=== PATIENT | male | born 1945 | race Caucasian/White ===

== ENCOUNTER → 2022-01-18 | Outpatient (CLI) | payer OTHER | LOC: CARD 11:00 | PROVIDERS: ATTEND Internal Medicine Cardiovascular Disease | DX: I25.10 Atherosclerotic heart disease of native coronary artery without angina pectoris (principal); I35.0 Nonrheumatic aortic (valve) stenosis; I11.9 Hypertensive heart disease without heart failure | CPT/HCPCS: 93306 ==

== ENCOUNTER → 2022-01-24 | Outpatient (CLI) | payer OTHER ==
[~2022-01-24] VITALS: Ht 175 cm; Wt 77.0 kg
[~2022-01-24] MED LIST: ASCO100024 PO; CALC-822 PO; CATHETER FLUSH 10 ML SYR IVP PRN; CHOL100048 PO; GLUC-219 PO; HYDR12.56 PO; MEMA10TA57 PO; REGADENOSON 0.4 MG/5 ML SYR (LEXISCAN) IV ONE; TUMERIC PO; UBID100C44 PO; VITA1CAP16 PO; [UNRECOGNIZED DRUG - CODE] PO
[2022-01-24 10:14] VITALS: BP 147/72
--- NOTE | 2022-01-24 13:27 | Cardiology Stress Test Report ---
Stress Test Report Date of Procedure/Referring: Date of Procedure: Jan 24, 2022 PCP Gina Bertrand DO Admitting Physician Admitting Physician: Attending Physician: Rula Lilyl MD Indications: CP Baseline Heart Rate: 78 Baseline Blood Pressure: Blood Pressure Systolic: 147 Blood Pressure Diastolic: 72 Baseline Vitals Vital Signs Date Time Temp Pulse Resp B/P (MAP) Pulse Ox O2 Delivery O2 Flow Rate FiO2 01/24/22 10:14 78 147/72 (97) Baseline EKG: Baseline EKG: NSR Summary After explaining the procedure to the patient, he signed a consent and then brought to the stress nuclear laboratory. Patient received 0.4 mg Lexiscan for stress test, ECG, heart rate and blood pressure were monitored continuously. Resting and stress dose of radio tracer were injected, imaging was acquired and reviewed in short axis, horizontal long axis and vertical long axis views. TID: 1.14 SSS: 2 SDS: 2 EF: 70 1. Patient tolerated Lexiscan well 2. No significant ischemia or infarction on SPECT images 3. Normal left ventricular size, ejection fraction 70% Copy Copies To 1: GINA BERTRAND BASHAR J MD Jan 24, 2022 13:27
== END ==
LOC: CARD 08:45
PROVIDERS: ATTEND Internal Medicine Cardiovascular Disease
DX: I25.10 Atherosclerotic heart disease of native coronary artery without angina pectoris (principal); I10 Essential (primary) hypertension
CPT/HCPCS: 78452; 93017; A9502

== ENCOUNTER 2022-01-26 09:00 | Day surgery (SDC) | payer MEDICARE, OTHER ==
[~2022-01-26] VITALS: Ht 175.3 cm; Wt 79.1 kg
[2022-01-26 07:22] VITALS: BP 144/60
[2022-01-26 07:37] LABS: HEMOGLOBIN 13.5 g/dL (13.3-17.7)
[2022-01-26 07:39] LABS: BILIRUBIN,URINE NEGATIVE (NEGATIVE); CLARITY,URINE CLEAR; COLOR,URINE YELLOW; GLUCOSE, URINE (UA) NEGATIVE (NEGATIVE); KETONES,URINE NEGATIVE (NEGATIVE); LEUKOCYTE ESTERASE ,URINE NEGATIVE (NEGATIVE); NITRITE,URINE NEGATIVE (NEGATIVE); PH,URINE 5.5 (5-9); PROTEIN,URINE NEGATIVE (NEGATIVE); WHITE BLOOD COUNT 3.5 10^3/uL (4.3-11.0)
--- NOTE | 2022-01-26 07:39 | Diagnostic Imaging Report ---
EXAM: CHEST 1 VIEW, AP/PA ONLY INDICATION: Severe claudication. COMPARISON: None. FINDINGS: Normal heart size and central pulmonary vascularity. No focal pulmonary opacity. No pleural effusion or pneumothorax. No acute osseous findings. IMPRESSION: No acute cardiopulmonary findings. Dictated by: Dictated on workstation # [id number]
--- NOTE | 2022-01-26 07:46 | Cardiac Procedure Note-CS/ASA ---
Pre-Procedure Note Pre-Op Procedure Note Date of Available H&P: Jan 15, 2022 Date H&P Reviewed: Jan 26, 2022 Time H&P Reviewed: 07:46 History & Physical: H&P Reviewed, Patient Examed, No changes noted Pre-Operative Diagnosis: Claudication Conscious Sedation Pre-Proced Time 07:46 ASA Score 3 For ASA 3 and 4: Consider anesthesia and medical clearance. Also, for patients with a history of failed moderate sedation consider anesthesia. Airway Lungs Heart ASA score ASA 1: a normal healthy patient ASA 2: a patient with a mild systemic disease (mid diabetes, controlled hypertension, obesity ASA 3: a patient with a severe systemic disease that limits activity (angina, COPD, prior Myocardial infarction) ASA 4: a patient with an incapacitating disease that is a constant threat to life (CHF, renal failure) ASA 5: a moribund patient not expected to survive 24 hrs. (ruptured aneurysm) ASA 6: a declared brain- patient whose organs are being harvested. For emergent operations, add the letter E after the classification Mallampati Classification Grade 3 Sedation Plan Analgesia, Amnesia, Plan communicated to team members, Discussed options with patient/fam, Discussed risks with patient/fam The patient is an appropriate candidate to undergo the planned procedure, sedation, and anesthesia. The patient immediately re-assessed prior to indication. LILIANE VOSS MD Jan 26, 2022 07:46
[2022-01-26 07:47] LABS: ALBUMIN 4.3 GM/DL (3.2-4.5); BACTERIA,URINE NEGATIVE /HPF; POTASSIUM 3.9 MMOL/L (3.6-5.0); SQUAMOUS EPITHELIAL CELL,UR RARE /HPF
[2022-01-26 07:48] LABS: CALCIUM 9.2 MG/DL (8.5-10.1)
[2022-01-26 07:49] LABS: TOTAL PROTEIN 7.4 GM/DL (6.4-8.2)
[2022-01-26 07:51] LABS: BILIRUBIN,TOTAL 0.9 MG/DL (0.1-1.0)
[2022-01-26 08:17] LABS: INR 1.1 (0.8-1.4); PROTHROMBIN TIME PATIENT 14.4 SEC (12.2-14.7)
[~2022-01-26 09:00] MED LIST changes: -CATHETER FLUSH 10 ML SYR IVP PRN; +HEParin (CATH LAB) 2,000 ML IV ONE; +LIDOCAINE 1% INJ 20 ML VIAL ONE; +MIDAZOLAM 2 MG/2 ML (VERSED) VIAL ONE; +NS IV 1000 ML 1,000 ML IV SCH; +NS IV 1000 ML 1,000 ML ONE; -REGADENOSON 0.4 MG/5 ML SYR (LEXISCAN) IV ONE; +fentaNYL INJ 100 MCG/2 ML AMP ONE
[2022-01-26] MEDS ORDERED: HEParin 1000 UNIT/ML (10ML VIAL) FOR BOLUS ONE (09:26)
[2022-01-26] MEDS ORDERED: NITRO DRIP 25000 MCG/D5W 0 ML IV ONE (09:26)
[2022-01-26] MEDS ORDERED: MIDAZOLAM 2 MG/2 ML (VERSED) VIAL ONE (09:57)
[2022-01-26] MEDS ORDERED: CLOPIDOGREL 300 MG (PLAVIX) TABLET PO ONE (10:41)
[2022-01-26] MEDS ORDERED: ASPIRIN 325 MG (5 GR) TABLET ONE (10:41)
--- NOTE | 2022-01-26 10:54 | Peripheral Report ---
Peripheral Report Physician (s)/Family Day Care Provider (s) Physician LILIANE VOSS MD Pre-Procedure Diagnosis Pre-Procedure Diagnosis: Claudication Post-Procedure Note Procedure Start Date: Jan 26, 2022 Name of Procedure: Bilateral lower extremities runoff Third order Additional imaging Balloon angioplasty and stenting to the right SFA Findings/Procedure Note PROCEDURE NOTE: 76-year-old gentleman with increasing claudication, has severely abnormal ROSETTA on the right, moderate to severe abnormal ROSETTA on the left. Scheduled for peripheral angiogram After explaining the procedure to the patient, all pros and cons were explained, all questions were answered. The patient signed the consent and then he was placed on the cardiac catheterization laboratory. The patient was placed on the cardiac catheterization laboratory. Groin was prepped SL fashion local anesthesia was used. Sheath placed in the left femoral artery, runoff to the left lower extremity was done through the sheath then a rim catheter was advanced to the common iliac artery and runoff to the right leg was done then Storq catheter was advanced and I placed 6 Portuguese 45 cm sheath advanced to the mid right iliac artery then I advanced the straight catheter to the mid SFA and performed angiogram to the SFA. Patient was given a total of 7000 units of heparin I used command 18 wire and patient had total occlusion at multiple segment, I was able to advance through the lesion with Chas cross catheter, I was unable to advance 5 x 200 balloon, did inflation in the mid SFA then I advanced 2 oh by 40 balloon to the popliteal artery and did multiple inflation in the popliteal and distal SFA through the total occlusion then I was able to advance 6 x 100 balloon and did multiple inflation. Then I used another 6 x 100 balloon 3 Supera stent were deployed distally 5.5 x 150 followed by one 5.5 x 150 and proximally 6 x 100 overlapping postdilated with 5.5 x 150 balloon, angiogram showed excellent results. Sheath was retracted and exchanged back and used short 6 Portuguese sheath then sheath was removed and Angio-Seal was used FINDINGS: Left lower extremity, atherosclerotic plaque in the mid SFA with multiple area of moderate to severe stenosis Right lower extremity, atherosclerotic plaque in the proximal and mid SFA, total occlusion at the mid SFA and the popliteal artery, complex intervention with successful balloon angioplasty and deployment of 3 stents overlapping Supera in the SFA with excellent results. CONCLUSIONS: 1. 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 Severe calcification. Successful balloon angioplasty and deployment of 3 Supera stent. Distally 5.5 x 150 followed by 5.5 x 150 and proximally 6 x 100 overlapping stent postdilated with 5.5 balloon. 2. Left lower extremity has moderate to severe stenosis at the midportion DISCUSSION AND RECOMMENDATIONS: Maximize medical therapy and planning for staged intervention to the left lower extremity Anesthesia Type: Conscious Sedation Estimated blood loss (mL): 30 ml Contrast Amount: 40 ml Total Radiation Dose: 346 mGy Post-Procedure Diagnosis Post-operative diagnosis: Claudication Peripheral arterial disease Hypertension Hyperlipidemia LILIANE VOSS MD Jan 26, 2022 10:54
[2022-01-26] MEDS ORDERED: PATIENT MAY USE OWN MEDS, ALL PO SCH (11:00)
[2022-01-26] MEDS ORDERED: morphine INJ 4 MG/ML 1 ML (VIAL/SYRINGE) ONE (11:55)
[2022-01-26 12:00] VITALS: BP 138/69
[2022-01-26] MEDS ORDERED: fentaNYL INJ 100 MCG/2 ML AMP ONE (14:12)
[2022-01-26] MEDS ORDERED: fentaNYL INJ 100 MCG/2 ML AMP IVP ONE (14:21)
[2022-01-26] MEDS ORDERED: fentaNYL INJ 100 MCG/2 ML AMP IVP NR (14:30)
[2022-01-26 16:25] VITALS: BP 119/66
[2022-01-26 19:56] VITALS: BP 123/68
[2022-01-26] MEDS: ACETAMINOPHEN 325 MG TABLET PO PRN (22:18)
[2022-01-27 06:20] LABS: HEMOGLOBIN 11.9 g/dL (13.3-17.7); MEAN PLATELET VOLUME 11.4 fL (9.0-12.2)
[2022-01-27 06:45] LABS: POTASSIUM 3.8 MMOL/L (3.6-5.0)
[2022-01-27 06:46] LABS: CALCIUM 8.7 MG/DL (8.5-10.1)
[2022-01-27 06:50] LABS: CREATININE SERUM 0.86 MG/DL (0.60-1.30)
[2022-01-27 08:00] VITALS: BP 140/71
[2022-01-27] MEDS: ASPIRIN E.C. 81 MG (ECOTRIN) TAB PO SCH (08:40)
[2022-01-27] MEDS ORDERED: NON-FORMULARY MEDICATION 1 EA EA (Hydrochlorothiazide 12.5 MG) PO SCH (09:00)
[2022-01-27] MEDS ORDERED: fentaNYL INJ 100 MCG/2 ML AMP ONE (09:13)
[2022-01-27] MEDS ORDERED: HEParin 1000 UNIT/ML (10ML VIAL) FOR BOLUS ONE (09:14)
[2022-01-27] MEDS ORDERED: NS IV 1000 ML 1,000 ML ONE (09:14)
[2022-01-27] MEDS ORDERED: MIDAZOLAM 2 MG/2 ML (VERSED) VIAL ONE (09:14)
[2022-01-27] MEDS ORDERED: LIDOCAINE 1% INJ 20 ML VIAL ONE (09:14)
[2022-01-27] MEDS ORDERED: HEParin (CATH LAB) 1,000 ML IV ONE (09:14)
[2022-01-27] MEDS: CLOPIDOGREL 75 MG (PLAVIX) TABLET PO SCH (09:15)
--- NOTE | 2022-01-27 09:22 | Cardiology Progress Note ---
Subjective Date Seen by Provider: Jan 27, 2022 Time Seen by Provider: 09:20 Subjective/Events-last exam Patient was seen at bedside, sitting comfortably, denied any active pain. Have significant bruising on the left groin Review of Systems General: No Chills, No Night Sweats, No Fatigue, No Malaise, No Appetite, No Other HEENT: No Head Aches, No Visual Changes, No Eye Pain, No Ear Pain, No Dysphasia, No Sinus Congestion, No Post Nasal Drip, No Sore Throat, No Other Pulmonary: No Dyspnea, No Cough, No Pleuritic Chest Pain, No Other Cardiovascular: No: Chest Pain, Palpitations, Orthopnea, Paroxysmal Noc. Dyspnea, Edema, Lt Headedness, Other Objective-Cardiology Exam Last Set of Vital Signs Vital Signs 01/27/22 08:00 Temp 37.3 Pulse 79 Resp 16 B/P (MAP) 140/71 (94) Pulse Ox 98 O2 Delivery Room Air I&O Intake and Output 01/27/22 00:00 Intake Total 450 ml Output Total 300 ml Balance 150 ml Intake Oral 450 ml Output Urine Total 300 ml General: Alert, Oriented X3, Cooperative HEENT: Atraumatic, PERRLA Neck: Supple, No JVD, No Thyromegaly Lungs: Clear to Auscultation, Normal Air Movement Heart: Regular Rate, Normal S1, Normal S2, Other (Systolic murmur) Abdomen: Normal Bowel Sounds, Soft, No Tenderness, No Hepatosplenomegaly, No Masses Extremities: No Clubbing, No Cyanosis, No Edema, No Tenderness/Swelling Skin: No Rashes, No Breakdown, No Significant Lesion Neuro: Normal Gait, Normal Speech, Strength at 5/5 X4 Ext, Normal Tone, Sensation Intact Psych/Mental Status: Mental Status NL, Mood NL Results Lab Laboratory Tests 01/27/22 05:27 A/P-Cardiology Admission Diagnosis Claudication Peripheral arterial disease Hypertension Hyperlipidemia Diabetes mellitus Assessment/Plan Severe claudication Extensive peripheral arterial disease Total occlusion of the right SFA, status post complex intervention on January 26, 2022 3 stents to the right SFA with excellent results Patient has severe stenosis of the left SFA, planning for intervention today Patient had continuous oozing of blood post intervention yesterday Reporting that he has a history of bleeding tendencies There is significant bruising, no hematoma was noted Hypertension, continue on current medication monitor blood pressure Hyperlipidemia, monitor lipids Diabetes mellitus, holding metformin LILIANE VOSS MD Jan 27, 2022 09:22
--- NOTE | 2022-01-27 09:23 | Cardiac Procedure Note-CS/ASA ---
Pre-Procedure Note Pre-Op Procedure Note Date of Available H&P: Jan 15, 2022 Date H&P Reviewed: Jan 27, 2022 Time H&P Reviewed: 09:23 History & Physical: H&P Reviewed, Patient Examed, No changes noted Pre-Operative Diagnosis: Claudication Conscious Sedation Pre-Proced Time 09:23 ASA Score 3 For ASA 3 and 4: Consider anesthesia and medical clearance. Also, for patients with a history of failed moderate sedation consider anesthesia. Airway Lungs Heart ASA score ASA 1: a normal healthy patient ASA 2: a patient with a mild systemic disease (mid diabetes, controlled hypertension, obesity ASA 3: a patient with a severe systemic disease that limits activity (angina, COPD, prior Myocardial infarction) ASA 4: a patient with an incapacitating disease that is a constant threat to life (CHF, renal failure) ASA 5: a moribund patient not expected to survive 24 hrs. (ruptured aneurysm) ASA 6: a declared brain- patient whose organs are being harvested. For emergent operations, add the letter E after the classification Mallampati Classification Grade 3 Sedation Plan Analgesia, Amnesia, Plan communicated to team members, Discussed options with patient/fam, Discussed risks with patient/fam The patient is an appropriate candidate to undergo the planned procedure, sedation, and anesthesia. The patient immediately re-assessed prior to indication. LILIANE VOSS MD Jan 27, 2022 09:23
[2022-01-27] MEDS: HydroCHLOROthiazide CAP/TABLET 12.5 MG TAB PO SCH (09:41)
[2022-01-27] MEDS ORDERED: NITRO DRIP 25000 MCG/D5W 250 ML IV ONE (10:10)
--- NOTE | 2022-01-27 10:43 | Peripheral Report ---
Peripheral Report Physician (s)/Cordage Sales Representative (s) Physician LILIANE VOSS MD Pre-Procedure Diagnosis Pre-Procedure Diagnosis: Claudication Post-Procedure Note Procedure Start Date: Jan 27, 2022 Name of Procedure: Bilateral lower extremities runoff Third order Stenting of the left SFA Findings/Procedure Note PROCEDURE NOTE: 76-year-old gentleman with extensive peripheral arterial disease, significant claudication. Underwent percutaneous intervention of the right lower extremity on January 26, 2022 and he was scheduled for intervention on the left lower extremity. After explaining the procedure to the patient, all pros and cons were explained, all questions were answered. The patient signed the consent and then he was placed on the cardiac catheterization laboratory. The patient was placed on the cardiac catheterization laboratory. Groin was prepped SL fashion local anesthesia was used. Sheath placed in the right femoral artery, rim catheter was used and a Storq wire was advanced then sheath was exchanged and I used a long 6 Persian sheath advanced to the proximal left SFA runoff to the left leg was done then I advanced a command 18 wire and did balloon angioplasty with Orrick 6 x 150. Then proceeded with deployment of 2 Supera stents 5.5 x 150 and 5.5 x 100 postdilated with 5.0 balloon, angiogram showed excellent results, I pulled back the sheath to the proximal left common iliac and did runoff to the left leg then the sheath was exchanged to a short 6 Persian sheath and I placed a pigtail catheter in the abdominal aorta and did abdominal aortogram with runoff down to the mid SFA bilaterally. Sheath position was checked with angiogram then closure device deployed FINDINGS: Right lower extremity, has patent stents in the right SFA with excellent flow down to the trifurcation Left lower extremity, patient has severe stenosis in the mid left SFA, successful balloon angioplasty then deployment of 2 stents Supera 5.5 x 150 and 5.5 x 100 with excellent results Abdominal aortogram done with the pigtail just above the bifurcation, showing small aneurysmal dilatation in the distal abdominal aorta, mild atherosclerotic disease in the iliac and common femoral artery, nonobstructive disease. CONCLUSIONS: 1. Small infrarenal abdominal aortic aneurysmal dilatation. Very minimal 2. Mild to moderate calcification in the iliac artery with mild disease nonobstructive disease 3. Severe stenosis in the left SFA with successful deployment of 2 overlapping Supera stent 5.5 x 105.5 x 150 with excellent results 4. Patent stent in the right SFA with excellent flow distally DISCUSSION AND RECOMMENDATIONS: Continue on aspirin and Plavix. Anesthesia Type: Conscious Sedation Estimated blood loss (mL): 30 ml Contrast Amount: 29 ml Total Radiation Dose: 198 mGy Post-Procedure Diagnosis Post-operative diagnosis: Claudication Peripheral arterial disease Hypertension Hyperlipidemia. LILIANE VOSS MD Jan 27, 2022 10:43
[2022-01-27] MEDS ORDERED: PATIENT MAY USE OWN MEDS, ALL PO SCH (10:45)
[2022-01-27 12:00] VITALS: BP 116/48
[2022-01-27] MEDS: ACETAMINOPHEN 325 MG TABLET PO PRN (12:11)
[2022-01-27] MEDS: NS IV 1000 ML 1,000 ML IV SCH ×6 (13:04→23:05)
[2022-01-27] MEDS ORDERED: IBUPROFEN TABLET 200 MG TAB PO PRN (13:45)
[2022-01-27] MEDS: PANTOPRAZOLE 40 MG (PROTONIX) TAB PO SCH (14:30)
[2022-01-27 15:36] VITALS: BP 127/63
[2022-01-27 19:47] VITALS: BP 135/65
[2022-01-28 00:43] VITALS: BP 121/58
[2022-01-28 05:27] LABS: HEMOGLOBIN 11.1 g/dL (13.3-17.7); MEAN PLATELET VOLUME 11.8 fL (9.0-12.2); WHITE BLOOD COUNT 4.7 10^3/uL (4.3-11.0)
[2022-01-28 05:45] LABS: POTASSIUM 3.7 MMOL/L (3.6-5.0)
[2022-01-28 05:46] LABS: CALCIUM 8.4 MG/DL (8.5-10.1)
[2022-01-28 05:51] LABS: CREATININE SERUM 0.83 MG/DL (0.60-1.30)
[2022-01-28] MEDS: NS IV 1000 ML 1,000 ML IV SCH (07:00)
[2022-01-28] MEDS ORDERED: CLOP75TA28 PO (07:45)
[2022-01-28] MEDS ORDERED: ASPI-1238 PO (07:45)
[2022-01-28] MEDS ORDERED: PANT40TA52 PO (07:45)
--- NOTE | 2022-01-28 07:46 | Discharge Inst-Post CATH ---
Discharge Inst-CATH/EP Problems Reviewed?: Yes Post Cardiac Cath/EP D/C Inst Follow Up/Plan Appointment with Dr Lilly in 1-2 weeks <b>CARDIAC CATH/EP PROCEDURE DISCHARGE INSTRUCTIONS</b> ACTIVITY * Go Home directly and rest. * Limit activity of the leg (or wrist if it was used) for 7 days including aerobics, swimming, jogging, bicycling, etc. * Restrict stair-climbing for 7 days if possible, if not, climb up with your non-cath leg, then bring together on the same step. * Avoid lifting, pushing, pulling or excessive movement of the affected extremity for 7 days. * Customary sexual activity may be resumed after 2 days-use caution not to use a position that strains or causes pain to the affected extremity. * No driving for 24 hours. * NO SMOKING. * Avoid straining for bowel movements for 7 days. * Gentle walking on level ground is allowed. * Returning to work will depend on the type of procedure and the results. Your doctor will discuss this with you. CALL YOUR DOCTOR FOR ANY OF THE FOLLOWING: *If bleeding from the puncture site occurs- Apply gentle pressure to site with clean cloth and call your doctor or EMS. * If a knot or lump forms under the skin, increases in size, or causes pain. * If bruising appears to be worsening or moving further down your leg instead of disappearing. * Temperature above 101 F. CARE OF YOUR GROIN INCISION; * Bruising or purple discoloration of the skin near the puncture site is common. * You may shower only, no bathtub bathing for 5 days. Be careful to avoid slipping as your leg may feel stiff. * If a closure device was used on your femoral artery, please see the attached guide regarding care of the device and your leg. * Leave dressing on FOR 24 hours. CARE OF YOUR WRIST INCISION; * Bruising or purple discoloration of the skin near the puncture site is common. * You may shower. * DO NOT submerge wrist. * Leave dressing on FOR 24 hours. LILIANE LILLY MD Jan 28, 2022 07:46
[2022-01-28 07:52] VITALS: BP 100/57
[2022-01-28] MEDS: HydroCHLOROthiazide CAP/TABLET 12.5 MG TAB PO SCH (08:28)
[2022-01-28] MEDS: ASPIRIN E.C. 81 MG (ECOTRIN) TAB PO SCH (08:28)
[2022-01-28] MEDS: CLOPIDOGREL 75 MG (PLAVIX) TABLET PO SCH (08:28)
[2022-01-28] MEDS: PANTOPRAZOLE 40 MG (PROTONIX) TAB PO SCH (08:28)
--- NOTE | 2022-01-28 09:17 | Cardiology Progress Note ---
Subjective Date Seen by Provider: Jan 28, 2022 Time Seen by Provider: 09:16 Subjective/Events-last exam Patient was seen at bedside, sitting comfortably, feeling well, both groins are healing well. Review of Systems General: No Chills, No Night Sweats, No Fatigue, No Malaise, No Appetite, No Other HEENT: No Head Aches, No Visual Changes, No Eye Pain, No Ear Pain, No Dysphasia, No Sinus Congestion, No Post Nasal Drip, No Sore Throat, No Other Pulmonary: No Dyspnea, No Cough, No Pleuritic Chest Pain, No Other Cardiovascular: No: Chest Pain, Palpitations, Orthopnea, Paroxysmal Noc. Dyspnea, Edema, Lt Headedness, Other Objective-Cardiology Exam Last Set of Vital Signs Vital Signs 01/28/22 07:52 Temp 37.4 Pulse 95 Resp 10 B/P (MAP) 100/57 (71) Pulse Ox 95 O2 Delivery Room Air I&O Intake and Output 01/28/22 00:00 Intake Total 940 ml Output Total 1550 ml Balance -610 ml Intake Oral 940 ml Output Urine Total 1550 ml # Voids 1 General: Alert, Oriented X3, Cooperative HEENT: Atraumatic, PERRLA Neck: Supple, No JVD, No Thyromegaly Lungs: Clear to Auscultation, Normal Air Movement Heart: Regular Rate, Normal S1, Normal S2, Other (Systolic murmur) Abdomen: Normal Bowel Sounds, Soft, No Tenderness, No Hepatosplenomegaly, No Masses Extremities: No Clubbing, No Cyanosis, No Edema, No Tenderness/Swelling Skin: No Rashes, No Breakdown, No Significant Lesion Neuro: Normal Gait, Normal Speech, Strength at 5/5 X4 Ext, Normal Tone, Sensation Intact Psych/Mental Status: Mental Status NL, Mood NL Results Lab Laboratory Tests 01/28/22 04:48 A/P-Cardiology Admission Diagnosis Claudication Peripheral arterial disease Hypertension Hyperlipidemia Diabetes mellitus Assessment/Plan Severe claudication Extensive peripheral arterial disease Total occlusion of the right SFA, status post complex intervention on January 26, 2022 3 stents to the right SFA with excellent results Returned on January 27, 2022 with 2 stents deployment in the left SFA with excellent results. Maintained on aspirin and Plavix Planning for discharge today Patient had continuous oozing of blood post intervention yesterday Reporting that he has a history of bleeding tendencies There is significant bruising, no hematoma was noted Hypertension, continue on current medication monitor blood pressure Hyperlipidemia, monitor lipids LILIANE VOSS MD Jan 28, 2022 09:17
== END 2022-01-28 10:10 | disposition home or self-care (01) ==
LOC: CATH 09:00 → CSD 11:07 → CATH 01-28 10:10
PROVIDERS: ATTEND Internal Medicine Cardiovascular Disease
DX: I70.213 Atherosclerosis of native arteries of extremities with intermittent claudication, bilateral legs (principal); I10 Essential (primary) hypertension; E78.5 Hyperlipidemia, unspecified; Z87.891 Personal history of nicotine dependence; I65.23 Occlusion and stenosis of bilateral carotid arteries
CPT/HCPCS: 36247 ×2; 36248; 37226; 37234; 71045; 75716 ×2; 80048 ×2; 80053; 80061; 81000; 85027 ×3; 85610; 85730; 87081; 93005; C1725 ×7; C1760; C1769 ×4; C1876 ×4; C1887 ×5; C1894 ×5; 36415

== ENCOUNTER → 2022-04-18 | Outpatient (RCR) | payer MEDICARE ==
[~2022-04-18] MED LIST changes: +ASPI-1238 PO; +CLOP75TA28 PO; -HEParin (CATH LAB) 2,000 ML IV ONE; -LIDOCAINE 1% INJ 20 ML VIAL ONE; -MIDAZOLAM 2 MG/2 ML (VERSED) VIAL ONE; -NS IV 1000 ML 1,000 ML IV SCH; -NS IV 1000 ML 1,000 ML ONE; +PANT40TA52 PO; -fentaNYL INJ 100 MCG/2 ML AMP ONE
== END | disposition home or self-care (01) ==
PROVIDERS: ATTEND Podiatrist Foot & Ankle Surgery
DX: M76.71 Peroneal tendinitis, right leg (principal)

== ENCOUNTER 2022-04-27 08:59 | Outpatient (RCR) | payer MEDICARE | END 2022-04-27 14:08 | disposition home or self-care (01) | PROVIDERS: ATTEND Podiatrist Foot & Ankle Surgery | DX: M76.71 Peroneal tendinitis, right leg (principal); I10 Essential (primary) hypertension ==

== ENCOUNTER 2022-05-15 10:51 | Outpatient (CLI) | payer MEDICARE | END 2022-05-15 11:12 | LOC: SLEEP 10:51 | PROVIDERS: ATTEND Otolaryngology Otolaryngology/Facial Plastic Surgery | DX: G47.33 Obstructive sleep apnea (adult) (pediatric) (principal) | CPT/HCPCS: G0399 ==

== ENCOUNTER 2022-06-15 16:36 | Observation (INO) | payer MEDICARE ==
[~2022-06-15] VITALS: Ht 175.2 cm; Wt 77.0 kg
[2022-06-15] MEDS ORDERED: BISACODYL 10 MG SUPP (DULCOLAX) PR PRN (17:00)
[2022-06-15] MEDS ORDERED: ACETAMINOPHEN 325 MG TABLET PO PRN (17:00)
[2022-06-15] MEDS ORDERED: LACTULOSE SYRUP 10GM/15ML (ENULOSE) 30ML UDC PO PRN (17:00)
[2022-06-15] MEDS ORDERED: ONDANSETRON 4 MG/2 ML (SDV) Z0FRAN IV PRN (17:00)
[2022-06-15] MEDS ORDERED: ONDANSETRON 4 MG (ZOFRAN) ORAL DISSOLVE TAB PO PRN (17:00)
[2022-06-15] MEDS ORDERED: MELATONIN 3 MG TABLET PO PRN (17:00)
[2022-06-15] MEDS ORDERED: CALCIUM CARBONATE 500 MG (TUMS) TAB.CHEW PO PRN (17:00)
[2022-06-15] MEDS ORDERED: ANTACID SUSP 30 ML UDC (MYLANTA) PO PRN (17:00)
[2022-06-15] MEDS ORDERED: diphenhydrAMINE 25 MG TAB (BENADRYL) PO PRN (17:00)
[2022-06-15] MEDS ORDERED: polyethylene glycoL POWDER 17 GM (MIRALAX) PACK PO PRN (17:00)
[2022-06-15] MEDS ORDERED: diphenhydrAMINE 50 MG/ML INJ (BENADRYL) IVP PRN (17:00)
[2022-06-15] MEDS ORDERED: MILK OF MAGNESIA 400 MG/5 ML 30 ML UDC PO PRN (17:00)
--- NOTE | 2022-06-15 17:25 | Diagnostic Imaging Report ---
INDICATION: Dyspnea. TECHNIQUE: Single view chest 4:48 PM. CORRELATION STUDY: 01/26/2022 FINDINGS: Heart size borderline enlarged. Vasculature within normal limits. Calcification of the aortic arch. The lungs are clear with no consolidating infiltrate. There is no significant effusion or pneumothorax. IMPRESSION: 1. Negative appearing single view chest. Dictated by: Dictated on workstation # [id number]
[2022-06-15 17:32] LABS: BASOPHILS % (AUTO) 1 % (0-10)
[2022-06-15 17:34] LABS: EOSINOPHILS % (AUTO) 1 % (0-10); HEMATOCRIT 37 % (40-54); HEMOGLOBIN 12.6 g/dL (13.3-17.7); LYMPHOCYTES # (AUTO) 1.4 10^3/uL (1.0-4.0); LYMPHOCYTES % (AUTO) 34 % (12-44); MEAN CORPUSCULAR HEMOGLOBIN 33 pg (25-34); MEAN CORPUSCULAR HGB CONC 34 g/dL (32-36); MEAN CORPUSCULAR VOLUME 98 fL (80-99); MONOCYTES # (AUTO) 0.5 10^3/uL (0.0-1.0); MONOCYTES % (AUTO) 12 % (0-12); NEUTROPHILS # (AUTO) 2.1 10^3/uL (1.8-7.8); NEUTROPHILS % (AUTO) 52 % (42-75); PLATELET COUNT 124 10^3/uL (130-400)
[2022-06-15 17:42] LABS: ABG BASE EXCESS -0.9 MMOL/L (-2.5-2.5); ABG OXYGEN SATURATION 96 % (94-100); ABG PCO2 38 MMHG (35-45); ABG PO2 82 MMHG (79-93); ABG TCO2 24.4 MMOL/L (21.0-31.0); ALLENS TEST YES-POS; PATIENT TEMP 36.9; VENTILATOR NO
[2022-06-15 17:51] LABS: ALBUMIN 4.3 GM/DL (3.2-4.5); CHLORIDE 107 MMOL/L (98-107); POTASSIUM 3.8 MMOL/L (3.6-5.0); SODIUM 140 MMOL/L (135-145)
[2022-06-15 17:52] LABS: CALCIUM 9.3 MG/DL (8.5-10.1)
[2022-06-15 17:53] LABS: GLUCOSE 131 MG/DL (70-105); TOTAL PROTEIN 7.4 GM/DL (6.4-8.2)
[2022-06-15 17:54] LABS: CARBON DIOXIDE 21 MMOL/L (21-32); FIBRIN DEGRADATION PRODUCTS 0.61 UG/ML (0.00-0.49); INR 1.1 (0.8-1.4); PROTHROMBIN TIME PATIENT 14.2 SEC (12.2-14.7)
[2022-06-15 17:55] LABS: BILIRUBIN,TOTAL 0.6 MG/DL (0.1-1.0)
[2022-06-15 17:57] LABS: ALKALINE PHOSPHATASE 62 U/L (40-136); CREATININE SERUM 1.01 MG/DL (0.60-1.30); GFR ESTIMATED 77
[2022-06-15 17:58] LABS: BUN/CREATININE RATIO 21
[2022-06-15 18:00] LABS: ALANINE AMINOTRANSFERASE 33 U/L (0-55)
[2022-06-15] MEDS ORDERED: MAGN30TA2 PO (18:10)
[2022-06-15] MEDS ORDERED: MEMA10TA57 PO (18:10)
[2022-06-15] MEDS ORDERED: GLUC-219 PO (18:10)
[2022-06-15] MEDS: methylPREDNISolone 40 MG/ML (Solu-MEDROL) VIAL IV SCH ×2 (18:19→23:25)
[2022-06-15] MEDS: RT-ALBUTEROL/IPRATROPIUM 3 ML (DUONEB) VIAL INH SCH ×2 (18:52→23:32)
[2022-06-15 19:10] VITALS: BP 146/60
[2022-06-15] MEDS: SENNOSIDES 8.6 MG (SENOKOT) TAB PO SCH (20:24)
[2022-06-15] MEDS: DOCUSATE SODIUM 100 MG (COLACE) CAP PO SCH (20:24)
[2022-06-15] MEDS ORDERED: TUMERIC PO SCH (21:00)
[2022-06-15] MEDS ORDERED: MONTELUKAST 10 MG (SINGULAIR) TAB PO SCH (21:00)
[2022-06-15 23:17] VITALS: BP 147/72
[2022-06-15 23:42] VITALS: BP 147/72
[2022-06-16] MEDS ORDERED: RT-ALBUTEROL/IPRATROPIUM 3 ML (DUONEB) VIAL INH PRN
[2022-06-16] MEDS: RT-ALBUTEROL/IPRATROPIUM 3 ML (DUONEB) VIAL INH SCH ×3 (02:15→10:32)
[2022-06-16 03:24] VITALS: BP 123/57
[2022-06-16] MEDS: methylPREDNISolone 40 MG/ML (Solu-MEDROL) VIAL IV SCH ×2 (05:57→11:28)
[2022-06-16 06:09] LABS: BASOPHILS % (AUTO) 0 % (0-10); EOSINOPHILS % (AUTO) 0 % (0-10); MEAN CORPUSCULAR HEMOGLOBIN 33 pg (25-34); NEUTROPHILS # (AUTO) 2.5 10^3/uL (1.8-7.8)
[2022-06-16 06:11] LABS: HEMATOCRIT 37 % (40-54); HEMOGLOBIN 12.3 g/dL (13.3-17.7); LYMPHOCYTES # (AUTO) 0.5 10^3/uL (1.0-4.0); LYMPHOCYTES % (AUTO) 16 % (12-44); MEAN CORPUSCULAR HGB CONC 34 g/dL (32-36); MEAN CORPUSCULAR VOLUME 97 fL (80-99); MEAN PLATELET VOLUME 11.7 fL (9.0-12.2); MONOCYTES % (AUTO) 1 % (0-12); NEUTROPHILS % (AUTO) 83 % (42-75); PLATELET COUNT 121 10^3/uL (130-400)
[2022-06-16 06:23] LABS: ALBUMIN 4.2 GM/DL (3.2-4.5)
[2022-06-16 06:24] LABS: POTASSIUM 3.4 MMOL/L (3.6-5.0)
[2022-06-16 06:25] LABS: CALCIUM 8.9 MG/DL (8.5-10.1)
[2022-06-16 06:26] LABS: TOTAL PROTEIN 7.1 GM/DL (6.4-8.2)
[2022-06-16 06:28] LABS: BILIRUBIN,TOTAL 0.6 MG/DL (0.1-1.0)
[2022-06-16 06:29] LABS: CREATININE SERUM 1.03 MG/DL (0.60-1.30)
--- NOTE | 2022-06-16 06:36 | Short Stay Summary ---
History of Present Illness History of Present Illness Reason for visit/HPI Chief complaint: Dyspnea HPI: This is a 76-year-old male clinic patient of mine who was directly admitted from the office with complaints of breathing problems. He called yesterday reporting breathing problems so I put him in for an urgent appointment. Patient reports he is struggling with his CPAP machine and that has caused an increase shortness of breath. He denies any wheezing. He was admitted and completed a dyspnea work-up which revealed no evidence of pulmonary embolism, acute myocardial infarction, congestive heart failure, or any infectious etiology. Today he still feeling like he cannot take a deep breath and Dr. Lilly evaluated him and we have come to the conclusion of anxiety of which he has a tendency for. We will initiate BuSpar 5 mg every 6 hours as a trial. He will contact Dr. Aguirre and hold off on using CPAP machine until that is addressed. Date of Admission Jun 15, 2022 at 16:39 Date of Discharge Time Seen by Provider: 11:00 Attending Physician Gina Beasley DO Admitting Physician Admitting Physician: Gina Beasley DO Attending Physician: Gina Beasley DO Consult Allergies and Home Medications Allergies Coded Allergies: codeine (Unverified Allergy, Unknown, 01/24/22) Patient Home Medication List Home Medication List Reviewed: Yes Albuterol Sulfate (Ventolin Hfa) 90 Mcg Hfa.aer.ad, 18 GM INH Q4H PRN for DYSPNEA Prescribed by: GINA BEASLEY on 06/16/22 1159 Ascorbic Acid (Vitamin C) 1,000 Mg Tablet, 1,000 MG PO DAILY, (Reported) Entered as Reported by: LOUIS STEWART on 01/26/22741 Last Action: Converted Aspirin (Aspirin EC) 81 Mg Tablet.dr, 81 MG PO DAILY Prescribed by: LILIANE LILLY on 01/28/22 0745 Last Action: Continued Buspirone HCl (Buspirone HCl) 5 Mg Tablet, 5 MG PO Q6H PRN for ANXIETY Prescribed by: GINA BEASLEY on 06/16/22 1159 Calcium Citrate/Vitamin D3 (Calcium Citrate - Vit D Caplet) 315 Mg Calcium-5 Mcg (200 Unit) Tablet, 1 EACH PO DAILY, (Reported) Entered as Reported by: LOUIS STEWART on 01/26/22741 Last Action: Converted Cholecalciferol (Vitamin D3) (Vitamin D3) 25 Mcg (1000 Unit) Capsule, 25 MCG PO DAILY, (Reported) Entered as Reported by: LOUIS STEWART on 01/26/22743 Last Action: Converted Clopidogrel Bisulfate (Clopidogrel) 75 Mg Tablet, 75 MG PO DAILY Prescribed by: LILIANE LILLY on 01/28/22744 Last Action: Continued Glucosamine/D3/Boswellia Sondra (Osteo Bi-Flex Tablet) 1,500 Mg-400 Unit-100 Mg Tablet, 1 EACH PO BID, (Reported) Entered as Reported by: JAKOB MARIE on 06/15/221809 Last Action: New Order Hydrochlorothiazide (Hydrochlorothiazide) 12.5 Mg Tablet, 12.5 MG PO DAILY, (Reported) Entered as Reported by: LOUIS STEWART on 01/26/22741 Last Action: Converted Magnesium Gluconate (Magnesium Gluconate) 30 Mg Magnesium (550 Mg) Tablet, 30 MG PO DAILY, (Reported) Entered as Reported by: JAKOB MARIE on 06/15/221809 Last Action: New Order Mecobalamin (B-12) 5,000 Mcg Tab.rapdis, 5,000 MCG PO DAILY, (Reported) Entered as Reported by: LOUIS STEWART on 01/26/22741 Last Action: Converted Memantine HCl (Memantine HCl) 10 Mg Tablet, 10 MG PO DAILY, (Reported) Entered as Reported by: JAKOB MARIE on 06/15/221809 Last Action: New Order Montelukast Sodium (Montelukast Sodium) 10 Mg Tablet, 10 MG PO HS Prescribed by: GINA BEASLEY on 06/16/22 1159 Pantoprazole Sodium (Pantoprazole Sodium) 40 Mg Tablet.dr, 40 MG PO DAILY Prescribed by: LILIANE LILLY on 01/28/22744 Last Action: Continued Ubidecarenone (Co Q-10) 100 Mg Capsule, 100 MG PO DAILY, (Reported) Entered as Reported by: LOUIS STEWART on 01/26/22741 Last Action: Converted Vitamin B Complex & Vit C No.3 (B Complex with Vitamin C) 15-10-300 Capsule, 1 EACH PO DAILY, (Reported) Entered as Reported by: LOUIS STEWART on 01/26/22741 Last Action: Converted [Tumeric 1500] , 1,500 MG PO BID, (Reported) Entered as Reported by: LOUIS STEWART on 01/26/22741 Last Action: Converted Discontinued Medications Glucosamine/D3/Boswellia Sondra (Osteo Bi-Flex Tablet) 1,500 Mg-400 Unit-100 Mg Tablet, 1 EACH PO DAILY, (Reported) Discontinued Reason: New Order Entered as Reported by: LOUIS STEWART on 01/26/22741 Last Action: Discontinued Memantine HCl (Memantine HCl) 10 Mg Tablet, 10 MG PO BID, (Reported) Discontinued Reason: New Order Entered as Reported by: LOUIS STEWART on 01/26/22741 Last Action: Discontinued Past Hyjsipa-Juazbl-Uchfcs Hx Patient Social History Marrital Status: Employed/Student: retired Smoking Status: Former Smoker Have you traveled recently?: No Alcohol Use?: No Pt feels they are or have been: No Immunizations Up To Date Date of Influenza Vaccine: Jun 15, 2022 Surgeries Appendectomy, Tonsillectomy Cardiovascular Coronary Artery Disease, Hypertension, Peripheral Vascular Psychosocial Behavioral Health Disorders: Anxiety Review of Systems Constitutional: see HPI Respiratory: short of breath Physical Exam Vital Signs Vital Signs - First Documented 06/15/22 06/15/22 06/15/22 06/15/22 06/15/22 17:25 17:49 18:52 19:10 23:42 Temp 37.0 Pulse 78 Resp 18 B/P (MAP) 146/60 (88) Pulse Ox 99 O2 Delivery Room Air O2 Flow Rate 0.00 FiO2 21 Capillary Refill : Height, Weight, BMI Height: '" Weight: lbs. oz. kg; 25.08 BMI Method: General Appearance: No Apparent Distress, WD/WN, Anxious, Chronically ill Eyes: Bilateral Eye Normal Inspection, Bilateral Eye PERRL, Bilateral Eye EOMI HEENT: PERRL/EOMI, TMs Normal, Normal ENT Inspection, Pharynx Normal Neck: Full Range of Motion, Normal Inspection, Non Tender, Supple, Carotid Bruit Respiratory: Chest Non Tender, Lungs Clear, Normal Breath Sounds, No Accessory Muscle Use, No Respiratory Distress Cardiovascular: Regular Rate, Rhythm, No Edema, No Gallop, No JVD, No Murmur, Normal Peripheral Pulses Gastrointestinal: Normal Bowel Sounds, No Organomegaly, No Pulsatile Mass, Non Tender, Soft Back: Normal Inspection, No CVA Tenderness, No Vertebral Tenderness Extremity: Normal Capillary Refill, Normal Inspection, Normal Range of Motion, Non Tender, No Calf Tenderness, No Pedal Edema Neurologic/Psychiatric: Alert, Oriented x3, No Motor/Sensory Deficits, Normal Mood/Affect Skin: Normal Color, Warm/Dry Lymphatic: No Adenopathy Short Stay Diagnosis Discharge Diagnosis-Short Stay Admission Diagnosis: Acute dyspnea Difficulty with CPAP machine Final Discharge Diagnosis: Dyspnea without source Presented anxiety Difficulty with CPAP machine Conclusion Labs Laboratory Tests 06/15/22 17:23: White Blood Count 4.0L, Red Blood Count 3.80L, Hemoglobin 12.6L, Hematocrit 37L, Mean Corpuscular Volume 98, Mean Corpuscular Hemoglobin 33, Mean Corpuscular Hemoglobin Concent 34, Red Cell Distribution Width 12.8, Platelet Count 124L, Mean Platelet Volume 11.0, Immature Granulocyte % (Auto) 1, Neutrophils (%) (Auto) 52, Lymphocytes (%) (Auto) 34, Monocytes (%) (Auto) 12, Eosinophils (%) (Auto) 1, Basophils (%) (Auto) 1, Neutrophils # (Auto) 2.1, Lymphocytes # (Auto) 1.4, Monocytes # (Auto) 0.5, Eosinophils # (Auto) 0.0, Basophils # (Auto) 0.0, Immature Granulocyte # (Auto) 0.0, Percent Immature Platelet Fraction 6.6, Prothrombin Time 14.2, INR Comment 1.1, D-Dimer 0.61H, Sodium Level 140, Potassium Level 3.8, Chloride Level 107, Carbon Dioxide Level 21, Anion Gap 12, Blood Urea Nitrogen 21H, Creatinine 1.01, Estimat Glomerular Filtration Rate 77, BUN/Creatinine Ratio 21, Glucose Level 131H, Calcium Level 9.3, Corrected Calcium 9.1, Total Bilirubin 0.6, Aspartate Amino Transf (AST/SGOT) 29, Alanine Aminotransferase (ALT/SGPT) 33, Alkaline Phosphatase 62, Troponin I < 0.028, B- Type Natriuretic Peptide 39.3, Total Protein 7.4, Albumin 4.3 06/15/22 17:32: Blood Gas Puncture Site RIGHT RADIAL, Blood Gas Patient Temperature 36.9, Arterial Blood pH 7.40, Arterial Blood Partial Pressure CO2 38, Arterial Blood Partial Pressure O2 82, Arterial Blood HCO3 23, Arterial Blood Total CO2 24.4, Arterial Blood Oxygen Saturation 96, Arterial Blood Base Excess -0.9, Scotty Test YES-POS, Blood Gas Ventilator Setting NO, Blood Gas Inspired Oxygen N/A 06/16/22 05:15: White Blood Count 3.0L, Red Blood Count 3.77L, Hemoglobin 12.3L, Hematocrit 37L, Mean Corpuscular Volume 97, Mean Corpuscular Hemoglobin 33, Mean Corpuscular Hemoglobin Concent 34, Red Cell Distribution Width 12.6, Platelet Count 121L, Mean Platelet Volume 11.7, Immature Granulocyte % (Auto) 1, Neutrophils (%) (Auto) 83H, Lymphocytes (%) (Auto) 16, Monocytes (%) (Auto) 1, Eosinophils (%) (Auto) 0, Basophils (%) (Auto) 0, Neutrophils # (Auto) 2.5, Lymphocytes # (Auto) 0.5L, Monocytes # (Auto) 0.0, Eosinophils # (Auto) 0.0, Basophils # (Auto) 0.0, Immature Granulocyte # (Auto) 0.0, Percent Immature Platelet Fraction 6.6, Sodium Level 139, Potassium Level 3.4L, Chloride Level 107, Carbon Dioxide Level 20L, Anion Gap 12, Blood Urea Nitrogen 24H, Creatinine 1.03, Estimat Glomerular Filtration Rate 75, BUN/Creatinine Ratio 23, Glucose Level 220H, Calcium Level 8.9, Corrected Calcium 8.7, Total Bilirubin 0.6, Aspartate Amino Transf ( T/SGOT) 26, Alanine Aminotransferase (ALT/SGPT) 33, Alkaline Phosphatase 58, Total Protein 7.1, Albumin 4.2 Conclusion/Plan Discharge home GINA BEASLEY DO Jun 16, 2022 06:36
[2022-06-16] MEDS ORDERED: KCL 20 MEQ TAB (K-DUR) PO ONE (06:45)
[2022-06-16] MEDS ORDERED: CYANOCOBALAMIN 1,000 MCG (VITAMIN B-12) TABLET PO SCH (07:00)
[2022-06-16] MEDS ORDERED: ASCORBIC ACID (VIT C) 500 MG TABLET PO SCH (07:00)
[2022-06-16] MEDS ORDERED: CALCIUM CARB + VIT D 600 MG (CALCARB + D) TAB PO SCH (07:00)
[2022-06-16] MEDS ORDERED: MULTIVIT W/MINERALS TAB (THERAGRAN M) PO SCH (07:00)
[2022-06-16 08:55] VITALS: BP 131/59
[2022-06-16] MEDS ORDERED: ASPIRIN E.C. 81 MG (ECOTRIN) TAB PO SCH (09:00)
[2022-06-16] MEDS ORDERED: NON-FORMULARY MEDICATION 1 EA EA (Hydrochlorothiazide 12.5 MG) PO SCH (09:00)
[2022-06-16] MEDS ORDERED: PANTOPRAZOLE 40 MG (PROTONIX) TAB PO SCH (09:00)
[2022-06-16] MEDS ORDERED: [UNRECOGNIZED DRUG - OTHER] PO SCH (09:00)
[2022-06-16] MEDS ORDERED: NON-FORMULARY MEDICATION 1 EA EA (Vitamin B Complex & Vit C No.3 (B Complex with Vitamin C PO SCH (09:00)
[2022-06-16] MEDS ORDERED: VITAMIN D3 25 MCG (1,000 UNITS) TABLET PO SCH (09:00)
[2022-06-16] MEDS ORDERED: VITAMIN D3 PO SCH (09:00)
[2022-06-16] MEDS ORDERED: CALCIUM CITRATE PO SCH (09:00)
[2022-06-16] MEDS ORDERED: CLOPIDOGREL 75 MG (PLAVIX) TABLET PO SCH (09:00)
[2022-06-16] MEDS ORDERED: NON-FORMULARY MEDICATION 1 EA EA (Ubidecarenone (Co Q-10) 100 MG) PO SCH (09:00)
[2022-06-16] MEDS ORDERED: MECOBALAMIN 5000 MCG PO SCH (09:00)
[2022-06-16] MEDS ORDERED: NON-FORMULARY MEDICATION 1 EA EA (Ascorbic Acid (Vitamin C) 1,000 MG) PO SCH (09:00)
[2022-06-16] MEDS ORDERED: HydroCHLOROthiazide CAP/TABLET 12.5 MG TAB PO SCH (09:00)
[2022-06-16] MEDS ORDERED: NON-FORMULARY MEDICATION 1 EA EA (Cholecalciferol (Vitamin D3) (Vitamin D3) 25 MCG) PO SCH (09:00)
[2022-06-16] MEDS: SENNOSIDES 8.6 MG (SENOKOT) TAB PO SCH (09:22)
[2022-06-16] MEDS: DOCUSATE SODIUM 100 MG (COLACE) CAP PO SCH (09:23)
--- NOTE | 2022-06-16 10:46 | Consultation-Cardiology ---
HPI-Cardiology Cardiology Consultation Date of Consultation 06/16/22 Date of Admission Time Seen by Provider: 10:43 Indication: Dyspnea HPI 76 years old gentleman with history of peripheral arterial disease, COPD, sleep apnea, started on a new mask for his CPAP machine. Reporting that he has been feeling short of breath, unable to take a deep breath. Denied any chest pain. No palpitation. No syncope or near syncopal episode. This morning he has been having sore throat. His breathing is better, not r equiring any oxygen Home Medications & Allergies Allergies: Coded Allergies: codeine (Unverified Allergy, Unknown, 01/24/22) Home Medication List Reviewed: Yes NIZ-Bdyhza-Eejwzo Hx Patient Social History Marital Status: Employed/Student: retired Have you traveled recently?: No Alcohol Use?: No Immunizations Up To Date Date of Influenza Vaccine: Jun 15, 2022 Past Medical History Discussed below Family Medical History Family Medical Hx Noncontributory Review of Systems-General Review of Systems Constitutional: no symptoms reported, see HPI EENTM: see HPI, throat pain Respiratory: see HPI; No cough, No dyspnea on exertion, No hemoptysis, No orthopnea, No phlegm; short of breath; No stridor, No wheezing, No other Cardiovascular: see HPI Gastrointestinal: no symptoms reported, see HPI Genitourinary: no symptoms reported, see HPI Musculoskeletal: no symptoms reported, see HPI Skin: no symptoms reported, see HPI Psychiatric/Neurological: No Symptoms Reported, See HPI Reviewed Test Results Reviewed Test Results Lab Laboratory Tests Test 06/15/22 17:23 06/15/22 17:32 06/16/22 05:15 Range/Units White Blood Count 4.0 L 3.0 L 4.3-11.0 10^3/uL Red Blood Count 3.80 L 3.77 L 4.30-5.52 10^6/uL Hemoglobin 12.6 L 12.3 L 13.3-17.7 g/dL Hematocrit 37 L 37 L 40-54 % Mean Corpuscular Volume 98 97 80-99 fL Mean Corpuscular Hemoglobin 33 33 25-34 pg Mean Corpuscular Hemoglobin Concent 34 34 32-36 g/dL Red Cell Distribution Width 12.8 12.6 10.0-14.5 % Platelet Count 124 L 121 L 130-400 10^3/uL Mean Platelet Volume 11.0 11.7 9.0-12.2 fL Immature Granulocyte % (Auto) 1 1 % Neutrophils (%) (Auto) 52 83 H 42-75 % Lymphocytes (%) (Auto) 34 16 12-44 % Monocytes (%) (Auto) 12 1 0-12 % Eosinophils (%) (Auto) 1 0 0-10 % Basophils (%) (Auto) 1 0 0-10 % Neutrophils # (Auto) 2.1 2.5 1.8-7.8 10^3/uL Lymphocytes # (Auto) 1.4 0.5 L 1.0-4.0 10^3/uL Monocytes # (Auto) 0.5 0.0 0.0-1.0 10^3/uL Eosinophils # (Auto) 0.0 0.0 0.0-0.3 10^3/uL Basophils # (Auto) 0.0 0.0 0.0-0.1 10^3/uL Immature Granulocyte # (Auto) 0.0 0.0 0.0-0.1 10^3/uL Percent Immature Platelet Fraction 6.6 6.6 0.0-7.6 % Prothrombin Time 14.2 12.2-14.7 SEC INR Comment 1.1 0.8-1.4 D-Dimer 0.61 H 0.00-0.49 UG/ML Sodium Level 140 139 135-145 MMOL/L Potassium Level 3.8 3.4 L 3.6-5.0 MMOL/L Chloride Level 107 107 98-107 MMOL/L Carbon Dioxide Level 21 20 L 21-32 MMOL/L Anion Gap 12 12 5-14 MMOL/L Blood Urea Nitrogen 21 H 24 H 7-18 MG/DL Creatinine 1.01 1.03 0.60-1.30 MG/DL Estimat Glomerular Filtration Rate 77 75 BUN/Creatinine Ratio 21 23 Glucose Level 131 H 220 H 70-105 MG/DL Calcium Level 9.3 8.9 8.5-10.1 MG/DL Corrected Calcium 9.1 8.7 8.5-10.1 MG/DL Total Bilirubin 0.6 0.6 0.1-1.0 MG/DL Aspartate Amino Transf (AST/SGOT) 29 26 5-34 U/L Alanine Aminotransferase (ALT/SGPT) 33 33 0-55 U/L Alkaline Phosphatase 62 58 40-136 U/L Troponin I < 0.028 <0.028 NG/ML B-Type Natriuretic Peptide 39.3 <100.0 PG/ML Total Protein 7.4 7.1 6.4-8.2 GM/DL Albumin 4.3 4.2 3.2-4.5 GM/DL Blood Gas Puncture Site RIGHT RADIAL Blood Gas Patient Temperature 36.9 Arterial Blood pH 7.40 7.37-7.43 Arterial Blood Partial Pressure CO2 38 35-45 MMHG Arterial Blood Partial Pressure O2 82 79-93 MMHG Arterial Blood HCO3 23 23-27 MMOL/L Arterial Blood Total CO2 24.4 21.0-31.0 MMOL/L Arterial Blood Oxygen Saturation 96 94-100 % Arterial Blood Base Excess -0.9 -2.5-2.5 MMOL/L Scotty Test YES-POS Blood Gas Ventilator Setting NO Blood Gas Inspired Oxygen N/A Physical Exam Physical Exam Vital Signs Vital Signs - First Documented 06/15/22 06/15/22 06/15/22 06/15/22 06/15/22 17:25 17:49 18:52 19:10 23:42 Temp 37.0 Pulse 78 Resp 18 B/P (MAP) 146/60 (88) Pulse Ox 99 O2 Delivery Room Air O2 Flow Rate 0.00 FiO2 21 Capillary Refill : Height, Weight, BMI Height: '" Weight: lbs. oz. kg; 25.08 BMI Method: General Appearance: No Apparent Distress, WD/WN Eyes: Bilateral Eye Normal Inspection, Bilateral Eye PERRL, Bilateral Eye EOMI HEENT: PERRL/EOMI, TMs Normal, Normal ENT Inspection, Pharynx Normal, Moist Mucous Membranes Neck: Full Range of Motion, Normal Inspection, Non Tender, Supple, Carotid Bruit Respiratory: Chest Non Tender, Normal Breath Sounds, No Accessory Muscle Use, No Respiratory Distress Cardiovascular: Regular Rate, Rhythm, No Edema, No Gallop, No JVD, No Murmur, Normal Peripheral Pulses Gastrointestinal: Normal Bowel Sounds, No Organomegaly, No Pulsatile Mass, Non Tender, Soft Back: Normal Inspection, No CVA Tenderness, No Vertebral Tenderness Extremity: Normal Capillary Refill, Normal Inspection, Normal Range of Motion, Non Tender, No Calf Tenderness, No Pedal Edema Neurologic/Psychiatric: Alert, Oriented x3, No Motor/Sensory Deficits, Normal Mood/Affect Skin: Normal Color, Warm/Dry Lymphatic: No Adenopathy A/P-Cardiology Admission Diagnosis Shortness of breath Obstructive sleep apnea Peripheral arterial disease Hypertension Assessment/Plan Shortness of breath, dyspnea, unable to take a deep breath Chest x-ray was normal Started on a new CPAP machine. Having difficulty with adjusting the pressure. Managed by medical team Peripheral arterial disease, Has history of Parker neuroma surgery on his right calf with slow healing since 2019 Has history of iliotibial band syndrome with pain. Had a severely abnormal ROSETTA on the right with 0.51 and TBI 0.2. And his ROSETTA on the left was 0.72 with TBI 0.70. Peripheral angiogram was done on January 26, 2022 with total occlusion of the right SFA and popliteal artery, successful balloon angioplasty and deployment of 3 Supera stents on the right side distally 5.5 x 150 followed by 5.5 x 150 mm proximally 6 x 100 overlapping with excellent results. Angiogram done on January 27, 2022 with small infrarenal abdominal aortic aneurysm, mild to moderate calcification in the iliac arteries. Severe stenosis in the left SFA with successful deployment of 2 overlapping Supera stent 5.5 x 150 and 5.5 x 100 with excellent results Had hematoma in the right groin, still having some mild discomfort but overall reporting improvement Continue to monitor History of bilateral venous ligation of the lower extremities done in 2018 Multiple risk factors for coronary artery disease, stress test done on January 24, 2022 showing no significant ischemia or infarction, ejection fraction 70% Hypertension, maintained on hydrochlorothiazide. Lipid profile done on January 26, 2022 showing total cholesterol 129, LDL 76, triglyceride 112, HDL 33. Continue to monitor Mild bilateral carotid stenosis, ultrasound was done in December 2021. Continue to monitor History of tobaccoism, stopped smoking over 15 years ago. LILIANE VOSS MD Jun 16, 2022 10:46
[2022-06-16] MEDS ORDERED: ALBU18HF2 INH (11:59)
[2022-06-16] MEDS ORDERED: MONT-40 PO (11:59)
[2022-06-16] MEDS ORDERED: BUSP5TAB59 PO (11:59)
== END 2022-06-16 11:56 | disposition home or self-care (01) ==
LOC: UNDOADMOB 16:39 → 4TH 16:39 → UNDODISOB 06-16 12:22
PROVIDERS: ADMIT Internal Medicine; ATTEND Internal Medicine
DX: R06.02 Shortness of breath (principal); F41.9 Anxiety disorder, unspecified; I73.9 Peripheral vascular disease, unspecified; I10 Essential (primary) hypertension; G47.33 Obstructive sleep apnea (adult) (pediatric); I65.23 Occlusion and stenosis of bilateral carotid arteries; Z87.891 Personal history of nicotine dependence; Z28.310 Unvaccinated for COVID-19
CPT/HCPCS: 36415; 36600; 71045; 80053; 82805; 83880; 84484; 85025; 85379; 85610; 93005; 94640; 94664; 94760; 96374; 96376; G0378

== ENCOUNTER 2022-06-19 13:00 | Outpatient (RCR) | payer MEDICARE ==
[~2022-06-19 13:00] MED LIST changes: +ALBU18HF2 INH; +BUSP5TAB59 PO; +MAGN30TA2 PO; +MONT-40 PO
== END 2022-06-19 21:00 | disposition home or self-care (01) ==
PROVIDERS: ATTEND Podiatrist Foot & Ankle Surgery
DX: M21.371 Foot drop, right foot (principal); R53.1 Weakness; R26.89 Other abnormalities of gait and mobility

== ENCOUNTER 2022-06-29 13:50 | Outpatient (RCR) | payer MEDICARE | END 2022-06-29 14:48 | disposition home or self-care (01) | PROVIDERS: ATTEND Podiatrist Foot & Ankle Surgery | DX: M21.371 Foot drop, right foot (principal); R53.1 Weakness; R26.89 Other abnormalities of gait and mobility; I10 Essential (primary) hypertension ==

== ENCOUNTER 2022-09-05 08:53 | Day surgery (SDC) | payer MEDICARE, OTHER ==
[2022-09-05] VITALS (10 sets, daily range): BP systolic 119–146; BP diastolic 51–77
[~2022-09-05] VITALS: Ht 175.3 cm; Wt 77.0 kg
[2022-09-05] MEDS ORDERED: NS IV 1000 ML 1,000 ML IV SCH ×2 (09:15→12:15)
[2022-09-05 09:50] LABS: HEMATOCRIT 39 % (40-54); HEMOGLOBIN 13.2 g/dL (13.3-17.7); MEAN CORPUSCULAR HEMOGLOBIN 33 pg (25-34); MEAN CORPUSCULAR HGB CONC 34 g/dL (32-36); MEAN CORPUSCULAR VOLUME 98 fL (80-99); MEAN PLATELET VOLUME 10.6 fL (9.0-12.2); PLATELET COUNT 166 10^3/uL (130-400); WHITE BLOOD COUNT 4.1 10^3/uL (4.3-11.0)
[2022-09-05] MEDS ORDERED: NS IV 1000 ML 1,000 ML ONE (09:50)
[2022-09-05] MEDS ORDERED: LIDOCAINE 1% INJ 20 ML VIAL ONE (09:50)
[2022-09-05] MEDS ORDERED: HEParin (CATH LAB) 2,000 ML IV ONE (09:50)
[2022-09-05 10:06] LABS: PROTHROMBIN TIME PATIENT 14.1 SEC (12.2-14.7)
[2022-09-05] MEDS ORDERED: CLOP75TA28 PO (10:08)
[2022-09-05] MEDS ORDERED: ASPI-1238 PO (10:08)
[2022-09-05] MEDS ORDERED: PANT40TA52 PO (10:08)
--- NOTE | 2022-09-05 10:08 | Diagnostic Imaging Report ---
EXAMINATION: Chest 1 view HISTORY: Atrial fibrillation. COMPARISON: 06/15/2022. FINDINGS: The lung volumes are normal. Left basilar opacities are seen. No large pleural effusion or pneumothorax is seen. The cardiomediastinal silhouette is normal in size and contour. There is calcified aortic atherosclerotic plaque. No acute osseous abnormality is seen. IMPRESSION: 1. Left basilar opacities, favored to represent atelectasis. Dictated by: Dictated on workstation # [id number]
[2022-09-05] MEDS ORDERED: NAPR220T66 PO (10:11)
[2022-09-05 10:13] LABS: ALBUMIN 4.4 GM/DL (3.2-4.5); BILIRUBIN,TOTAL 0.8 MG/DL (0.1-1.0); CALCIUM 10.2 MG/DL (8.5-10.1); CREATININE SERUM 1.04 MG/DL (0.60-1.30); TOTAL PROTEIN 8.1 GM/DL (6.4-8.2)
[2022-09-05] MEDS ORDERED: VERAPAMIL 5 MG/2 ML (CALAN) VIAL IV ONE (10:31)
[2022-09-05] MEDS ORDERED: fentaNYL INJ 100 MCG/2 ML AMP ONE (10:31)
[2022-09-05] MEDS ORDERED: MIDAZOLAM 5 MG/5 ML (VERSED) VIAL ONE (10:31)
[2022-09-05] MEDS ORDERED: HEParin 1000 UNIT/ML (10ML VIAL) FOR BOLUS ONE (10:32)
[2022-09-05] MEDS ORDERED: NITRO DRIP 25000 MCG/D5W 250 ML IV ONE (10:32)
--- NOTE | 2022-09-05 10:38 | Cardiac Procedure Note-CS/ASA ---
Pre-Procedure Note Pre-Op Procedure Note Date of Available H&P: Aug 21, 2022 Date H&P Reviewed: Sep 05, 2022 Time H&P Reviewed: 10:38 History & Physical: H&P Reviewed, Patient Examed, No changes noted Pre-Operative Diagnosis: Claudication Moderate Sedation PreProcedure Time 10:38 ASA Score 3 Airway Lungs Heart ASA score ASA 1: a normal healthy patient ASA 2: a patient with a mild systemic disease (mid diabetes, controlled hypertension, obesity ASA 3: a patient with a severe systemic disease that limits activity (angina, COPD, prior Myocardial infarction) ASA 4: a patient with an incapacitating disease that is a constant threat to life (CHF, renal failure) ASA 5: a moribund patient not expected to survive 24 hrs. (ruptured aneurysm) ASA 6: a declared brain- patient whose organs are being harvested. For emergent operations, add the letter E after the classification Mallampati Classification Grade 3 Sedation Plan Analgesia, Amnesia, Plan communicated to team members, Discussed options with patient/fam, Discussed risks with patient/fam The patient is an appropriate candidate to undergo the planned procedure, sedation, and anesthesia. The patient immediately re-assessed prior to indication. LILIANE VOSS MD Sep 05, 2022 10:38
--- NOTE | 2022-09-05 12:05 | Discharge Inst-Post CATH ---
Discharge Inst-CATH/EP Problems Reviewed?: Yes Post Cardiac Cath/EP D/C Inst Follow Up/Plan Appointment with Dr. Lilly's office next week <b>CARDIAC CATH/EP PROCEDURE DISCHARGE INSTRUCTIONS</b> ACTIVITY * Go Home directly and rest. * Limit activity of the leg (or wrist if it was used) for 7 days including aerobics, swimming, jogging, bicycling, etc. * Restrict stair-climbing for 7 days if possible, if not, climb up with your non-cath leg, then bring together on the same step. * Avoid lifting, pushing, pulling or excessive movement of the affected extremity for 7 days. * Customary sexual activity may be resumed after 2 days-use caution not to use a position that strains or causes pain to the affected extremity. * No driving for 24 hours. * NO SMOKING. * Avoid straining for bowel movements for 7 days. * Gentle walking on level ground is allowed. * Returning to work will depend on the type of procedure and the results. Your doctor will discuss this with you. CALL YOUR DOCTOR FOR ANY OF THE FOLLOWING: *If bleeding from the puncture site occurs- Apply gentle pressure to site with clean cloth and call your doctor or EMS. * If a knot or lump forms under the skin, increases in size, or causes pain. * If bruising appears to be worsening or moving further down your leg instead of disappearing. * Temperature above 101 F. CARE OF YOUR GROIN INCISION; * Bruising or purple discoloration of the skin near the puncture site is common. * You may shower only, no bathtub bathing for 5 days. Be careful to avoid slipping as your leg may feel stiff. * If a closure device was used on your femoral artery, please see the attached guide regarding care of the device and your leg. * Leave dressing on FOR 24 hours. CARE OF YOUR WRIST INCISION; * Bruising or purple discoloration of the skin near the puncture site is common. * You may shower. * DO NOT submerge wrist. * Leave dressing on FOR 24 hours. LILIANE LILLY MD Sep 05, 2022 12:05
--- NOTE | 2022-09-05 12:14 | Peripheral Report ---
Peripheral Report Physician (s)/Grocery Checker (s) Physician LILIANE VOSS MD Pre-Procedure Diagnosis Pre-Procedure Diagnosis: Claudication Post-Procedure Note Procedure Start Date: Sep 05, 2022 Name of Procedure: Aortic arch angiogram Abdominal aortogram with bilateral lower extremities runoff Third order Additional imaging x4 Findings/Procedure Note PROCEDURE NOTE: 77-year-old gentleman with extensive history of peripheral arterial disease, multiple intervention and multiple stents done in the past. Has been having increasing claudication and has an abnormal ROSETTA. He was scheduled for peripheral angiogram and possible percutaneous intervention. Per his insurance authorization, he was only authorized to have diagnostic procedure without any intervention. We appealed and discussed it with the insurance personally and they insisted on only diagnostic procedure. He is not a candidate for CT angiogram to the lower extremity due to the multiple stents which will affect the quality of the imaging. After explaining the procedure to the patient, all pros and cons were explained, all questions were answered. The patient signed the consent and then he was placed on the cardiac catheterization laboratory. The patient was placed on the cardiac catheterization laboratory. Groin was prepped SL fashion local anesthesia was used. Sheath placed in the right radial artery, I advanced the pig tail catheter and was unable to cross to the descending aorta. I used Yuri right catheter and still was unable to cross, heavy calcification was noted. I advanced the Yuri right catheter and performed aortic arch angiogram. Patient has a bovine type arch. I was able to advance a Storq catheter and turn it around to the descending aorta then advanced the pigtail catheter and placed it in the abdominal aorta just above the the renal arteries, I did DSA run to the abdominal aorta with bilateral runoff. There were couple areas that I was suspicious of significant disease in both legs. I advanced the Storq catheter down to the popliteal artery then advanced the mini pig in the right lower extremity, DSA imaging was done to the SFA and popliteal artery then I did DSA imaging at the level of the trifurcation on the right lower extremity then I pulled back the catheter and readvanced the Storq catheter in the left lower extremity DSA imaging was done at the level of the SFA and popliteal artery then I proceeded with DSA imaging at the level of the trifurcation then I did another DSA imaging at the level of the foot on the left lower extremity. At the end of the procedure the catheter was removed Sheath was removed and vascular band was used. FINDINGS: Aortic arch angiogram. Bovine type arch, heavily calcified artery. No dissection or aneurysm, the origin of the brachiocephalic artery was down almost at the ascending aorta, the left carotid and left subclavian artery are calcified with no obstructive disease Abdominal aortogram: Calcification in the abdominal aorta and the bifurcation, no dissection or aneurysm, normal origin of the renal arteries, right and left renal arteries are normal, SMA and JUAN DAVID are normal Right lower extremity: Right common iliac and external iliac artery has mild disease nonobstructive disease. Right SFA and popliteal artery has a stent that were patent, multiple area of mild to moderate stenosis nonobstructive disease Right tibioperoneal trunk has mild to moderate disease nonobstructive disease Right anterior tibial, posterior tibial and peroneal artery has mild to moderate disease nonobstructive disease Left lower extremity: Left common iliac and external iliac and SFA has mild to moderate disease nonobstructive disease Left SFA and popliteal artery has patent stents, mild to moderate disease nonobstructive disease Left tibioperoneal trunk has moderate disease, 50 to 60% stenosis proximally Left anterior tibial artery has 95% ostial stenosis, 60 to 70% proximal stenosis Left posterior tibial artery and peroneal artery has moderate disease CONCLUSIONS: Calcified aortic arch with no dissection or aneurysm Calcification in the abdominal aorta with no dissection or aneurysm Multiple patent stents in both lower extremities with mild to moderate disease nonobstructive disease 95% ostial left anterior tibial artery stenosis with 60 to 70% proximal left anterior tibial artery stenosis. 50 to 60% stenosis at the left tibial peroneal trunk and posterior tibial artery Otherwise moderate peripheral arterial disease DISCUSSION AND RECOMMENDATIONS: I recommend maximizing medical therapy. Regarding the anterior tibial artery on the left, the restenosis rate is significantly high if we proceed with balloon angioplasty. I recommend intervention if he has critical limb ischemia or nonhealing wound otherwise maximizing medical therapy and rehab is recommended Leg pain and claudication could be either related to the statin, I instructed him to stop the statin for now and monitor Anesthesia Type: Conscious Sedation Estimated blood loss (mL): 20 ml Contrast Amount: 82 ml Total Radiation Dose: 254 mGy Post-Procedure Diagnosis Post-operative diagnosis: Claudication Peripheral arterial disease Hypertension Hyperlipidemia LILIANE VOSS MD Sep 05, 2022 12:14
== END 2022-09-05 15:03 | disposition home or self-care (01) ==
LOC: CATH 08:53 → SDC 12:23 → CATH 15:03
PROVIDERS: ATTEND Internal Medicine Cardiovascular Disease
DX: I70.0 Atherosclerosis of aorta (principal); I73.89 Other specified peripheral vascular diseases; I70.202 Unspecified atherosclerosis of native arteries of extremities, left leg; I10 Essential (primary) hypertension; I65.23 Occlusion and stenosis of bilateral carotid arteries; E78.5 Hyperlipidemia, unspecified; M76.32 Iliotibial band syndrome, left leg; Z87.891 Personal history of nicotine dependence; Z28.310 Unvaccinated for COVID-19; Z98.890 Other specified postprocedural states; Z95.828 Presence of other vascular implants and grafts; Z86.718 Personal history of other venous thrombosis and embolism
CPT/HCPCS: 36221; 36247; 36248; 71045; 75630; 80053; 80061; 85027; 85610; 85730; 87081; 93005; C1769; C1887 ×2; C1894; 36415

== ENCOUNTER 2022-10-31 20:31 | Outpatient (CLI) | payer MEDICARE, OTHER ==
[~2022-10-31 20:31] MED LIST changes: +NAPR220T66 PO
== END 2022-11-01 06:15 | disposition home or self-care (01) ==
LOC: SLEEP 20:31
PROVIDERS: ATTEND Nurse Practitioner
DX: G47.33 Obstructive sleep apnea (adult) (pediatric) (principal)
CPT/HCPCS: 95811

== ENCOUNTER → 2022-12-19 | Outpatient (CLI) | payer MEDICARE ==
--- NOTE | 2022-12-19 17:07 | Diagnostic Imaging Report ---
CLINICAL INDICATIONS: Patient with neck pain and stiffness. EXAM: X-ray of the cervical spine with flexion and extension views. COMPARISON: None. FINDINGS: There is no acute cervical spine fracture or dislocation. There is severe loss of disk space height at the C5-C6 level. There is moderate loss of disk space height at the C3-C4 and C6-C7 levels. There are degenerative spurs involving the cervical spine and facet arthropathy. There is no prevertebral soft tissue swelling. There is no significant motion of the cervical spinal flexion-extension views. IMPRESSION: There is multilevel cervical spine degenerative disk disease. There is no significant cervical spine motion on flexion-extension views. Dictated by: Dictated on workstation # [id number]
== END ==
LOC: RAD 13:58
PROVIDERS: ATTEND Colon & Rectal Surgery
DX: M50.322 Other cervical disc degeneration at C5-C6 level (principal); M50.323 Other cervical disc degeneration at C6-C7 level; M50.31 Other cervical disc degeneration, high cervical region; M43.6 Torticollis
CPT/HCPCS: 72050